=== PATIENT | female | born 1975 ===

== ENCOUNTER 2021-05-06 05:50 | Day surgery (SDC) | payer OTHER ==
[~2021-05-06 05:50] MED LIST: ATORVASTATIN CA10 MG PO; PROPANOLOL PO; PROTONIX40 M1 PO
== END 2021-05-06 09:50 | disposition home or self-care (01) ==
LOC: CIR.AMB 05:50
PROVIDERS: ATTEND Surgery
DX: R22.2 Localized swelling, mass and lump, trunk (principal); R22.41 Localized swelling, mass and lump, right lower limb; Z20.822 Contact with and (suspected) exposure to COVID-19